=== PATIENT | male | born 1995 | race Asian ===

== ENCOUNTER 2018-08-30 15:02 | Emergency (ER) | payer MEDICAID ==
[~2018-08-30] VITALS: Ht 175.3 cm; Wt 86.2 kg
[2018-08-30 15:12] VITALS: BP 127/60
--- NOTE | 2018-08-30 15:12 | NUR ---
ED Nurse Note: Pt stated he was in an accident 3 years ago, injured sciatic nerve, got 1st surgery to close up the wound. Second surgery was 2 years ago on L calf. Pt has been in recovery from the surgeries. 3 days ago, R foot started swelling.
--- NOTE | 2018-08-30 15:12 | NUR ---
ED Nurse Note: Pt came in from home due to chronic R foot pain , 12/05 nora.
--- NOTE | 2018-08-30 16:15 | NUR ---
ED Nurse Note: US tech at bedside for imaging.
--- NOTE | 2018-08-30 16:16 | Diagnostic Imaging Report ---
Indication: Chest pain Comparison: None A single view chest radiograph was obtained. Findings: Cardiomediastinal appearance is within normal limits for age. The lungs are clear. Pulmonary vascularity is appropriate. The diaphragmatic contour is smooth and costophrenic angles are sharp. No pleural effusions are identified. The bones are unremarkable. Impression: No acute findings
[2018-08-30 16:18] LABS: ANION GAP 9 mmol/L (5-15); BLOOD UREA NITROGEN 13 mg/dL (7-18); CALCIUM 9.5 MG/DL (8.5-10.1); CARBON DIOXIDE 27 MMOL/L (21-32); CHLORIDE 102 MMOL/L (98-107); CREATININE 1.1 MG/DL (0.55-1.30); HEMATOCRIT 45.4 % (42.0-52.0); HEMOGLOBIN 15.5 G/DL (14.2-18.0); MEAN CORPUSCULAR VOLUME 89 FL (80-99); PLATELET COUNT 413 K/UL (150-450); RED BLOOD COUNT 5.11 M/UL (4.70-6.10); RED CELL DISTRIBUTION WIDTH 10.8 % (11.6-14.8); SODIUM 138 MMOL/L (136-145)
[2018-08-30 16:23] LABS: ALANINE AMINOTRANSFERASE 16 U/L (12-78); ALBUMIN 4.2 G/DL (3.4-5.0); ALKALINE PHOSPHATASE 78 U/L (46-116); ASPARTATE AMINO TRANSFERASE 21 U/L (15-37); BILIRUBIN,TOTAL 0.4 MG/DL (0.2-1.0); CREATINE KINASE 440 U/L (26-308)
--- NOTE | 2018-08-30 16:45 | Diagnostic Imaging Report ---
Indication: Foot Pain Comparison: None Findings: 3 views of the right foot were obtained. No acute fractures, malalignment, erosions or periostitis are identified. Impression: No acute findings.
[2018-08-30] MEDS ORDERED: Piperacillin/Tazobactam 3.375 GM in NS 110 ML IVPB ONE (17:15)
[2018-08-30 17:17] VITALS: BP 124/72
--- NOTE | 2018-08-30 17:30 | NUR ---
ED Nurse Note: Tried to call report x 2 but RN unable to reach Kelly at [facility].
--- NOTE | 2018-08-30 17:40 | Emergency Room Report ---
History of Present Illness General Chief Complaint: Pain Source: Patient Present Illness HPI 22-year-old male with history of right sciatic nerve rupture and surgery x5 years bounded to a cane walked in here complaining of 3 days of 10 out of 10 right foot pain and numbness. Patient reports that he often gets ulcers in the bottom of his foot however at this time it is been more painful and the antibiotic ointment is not helping. Patient denies tingling however complains of pain radiation from the bottom of his right foot at the right buttocks. Has not taken any medication other than gabapentin for pain. Denies fever and chills, chest pain, shortness of breath, palpitation, nausea vomiting. Denies drug use, smoking, alcohol intake. Allergies: Coded Allergies: No Known Allergies (Unverified , 08/30/18) Patient History Past Medical History: see triage record Past Surgical History: unable to obtain Pertinent Family History: none Immunizations: UTD Reviewed Nursing Documentation: PMH: Agreed; PSxH: Agreed Nursing Documentation-PMH Past Medical History: No Stated History Review of Systems All Other Systems: negative except mentioned in HPI Physical Exam Vital Signs Date Time Temp Pulse Resp B/P (MAP) Pulse Ox O2 Delivery O2 Flow Rate FiO2 08/30/18 15:06 98.6 101 18 127/60 (82) 97 Room Air Sp02 EP Interpretation: reviewed, normal General Appearance: normal inspection, well appearing, no apparent distress Head: normocephalic, atraumatic Eyes: bilateral eye normal inspection, bilateral eye PERRL ENT: normal ENT inspection, hearing grossly normal Neck: normal inspection, full range of motion, supple Respiratory: normal inspection, chest non-tender, lungs clear, normal breath sounds, no rhonchi Cardiovascular #1: normal inspection, no edema, no murmur, normal capillary refill Cardiovascular #2: 2+ dorsalis pedis (R), 2+ dorsalis pedis (L) Gastrointestinal: normal inspection, soft Genitourinary: no CVA tenderness Musculoskeletal: other - Infected foot Ulcer right foot Neurologic: normal inspection, alert, oriented x3 Psychiatric: normal inspection, judgement/insight normal Skin: no rash, other - Infected foot ulcer right foot Lymphatic: normal inspection, no adenopathy Medical Decision Making PA Attestation All my diagnosis and treatment plans were reviewed ad discussed with my supervising physician Dr. Gonzalez Diagnostic Impression: Primary Impression: Cellulitis Additional Impression: Foot ulcer ER Course 22-year-old male with history of right sciatic nerve rupture and surgery x5 years bounded to a cane walked in here complaining of 3 days of 10 out of 10 right foot pain and numbness. Patient reports that he often gets ulcers in the bottom of his foot however at this time it is been more painful and the antibiotic ointment is not helping. Patient denies tingling however complains of pain radiation from the bottom of his right foot at the right buttocks. Has not taken any medication other than gabapentin for pain. Denies fever and chills, chest pain, shortness of breath, palpitation, nausea vomiting. Denies drug use, smoking, alcohol intake. Ddx considered but are not limited to : Cellulitis, DVT, superficial infection, abscess Vital signs: are WNL, pt. is afebrile H&PE are most consistent with: Foot cellulitis ORDERS: Venous Doppler X, CBC, CMP, tox screen, PT PTT, INR, type and cross, x- ray right foot, chest x-ray, EKG ED INTERVENTIONS: Zosyn, NS bolus Patient was admited with diagnosis of cellulitis to Dr. Rivera under supervision of : Lisa pt stable at time of admission WBC 16 EKG Diagnostic Results Rate: normal Rhythm: NSR ST Segments: no acute changes Chest X-Ray Diagnostic Results Chest X-Ray Diagnostic Results : Chest X-Ray Ordered: Yes # of Views/Limited/Complete: 1 View Indication: Other EP Interpretation: Yes PA Xray: Interpretation reviewed, by supervising MD, and agrees with findings. Interpretation: no consolidation, no effusion, no pneumothorax Impression: No acute disease Electronically Signed by: bg mayes PA-C Other X-Ray Diagnostic Results Other X-Ray Diagnostic Results : # of Views/Limited Vs Complete: 2 View Indication: Pain EP Interpretation: Yes PA Xray: Interpretation reviewed, by supervising MD, and agrees with findings. Interpretation: no dislocation, no soft tissue swelling, no fractures Impression: No acute disease Electronically Signed by: bg mayes PA-C CT/MRI/US Diagnostic Results CT/MRI/US Diagnostic Results : Imaging Test Ordered: richar duplex RLE Impression WNL Last Vital Signs Date Time Temp Pulse Resp B/P (MAP) Pulse Ox O2 Delivery O2 Flow Rate FiO2 7/5/19 17:17 98.6 85 20 124/72 99 Room Air Disposition: ADMITTED INPATIENT Condition: Stable Referrals: [facility] (PCP) Patient Instructions: Cellulitis, [id number] Bg Hyman Aug 30, 2018 17:40
[2018-08-30 17:42] LABS: APPEARANCE,URINE CLEAR; BILIRUBIN, URINE NEGATIVE (NEGATIVE); GLUCOSE, URINE (UA) NEGATIVE (NEGATIVE); KETONES,URINE 2+ (NEGATIVE); LEUKOCYTE ESTERASE ,URINE NEGATIVE (NEGATIVE); NITRITE,URINE NEGATIVE (NEGATIVE); PH,URINE 6 (4.5-8.0); PROTEIN,URINE NEGATIVE (NEGATIVE); UROBILINOGEN,URINE 1 MG/DL (0.0-1.0)
[2018-08-30 17:43] LABS: COLOR,URINE YELLOW
[2018-08-30 18:13] VITALS: BP 124/72
--- NOTE | 2018-08-30 18:14 | NUR ---
ED Nurse Note: report given to MUSA Mendoza at [facility]. Ambulance personels at bedside for transportation. Pt is in no distress.
--- NOTE | 2018-09-02 10:18 | Diagnostic Imaging Report ---
Indication: Right leg pain Technique: Grayscale and duplex images of the right lower extremity veins Comparison: none Findings: Grayscale and duplex images demonstrate no evidence of intraluminal thrombus. Normal phasic Doppler waveforms, demonstrating normal augmentation response and no evidence of valvular insufficiency. Normal compressibility. Incidental finding of a prominent node in the right inguinal region which demonstrates preserved normal devika architecture Impression: Negative for right lower extremity venous thrombosis This agrees with the preliminary interpretation provided overnight by Dr. Leblanc
== END 2018-08-30 18:13 | disposition other institution (70) ==
LOC: EMR 15:47
DX: L03.115 Cellulitis of right lower limb (principal); L97.519 Non-pressure chronic ulcer of other part of right foot with unspecified severity
CPT/HCPCS: 36415; 71045; 73630; 80053; 80307; 81001; 82550; 85007; 85025; 85610; 85730; 86850; 86900; 86901; 87086; 93005; 93971; 96365; 99284; J2543